=== PATIENT | female | born 1975 | race Caucasian/White ===

== ENCOUNTER 2017-08-25 08:55 | Emergency (ER) | payer OTHER, MEDICAID ==
[~2017-08-25] VITALS: Ht 162.6 cm; Wt 107.0 kg
[~2017-08-25 08:55] MED LIST: ATOR10TA9 PO; METF10002 PO; SERT50TA PO
[2017-08-25] MEDS ORDERED: LIRA0.6P SQ-INSULIN (09:35)
[2017-08-25] MEDS ORDERED: hydrOXyzine 50MG TABLET ONE (09:43)
[2017-08-25 11:31] VITALS: BP 111/73
== END 2017-08-25 12:27 | disposition home or self-care (01) ==
LOC: ED 12:25
DX: L50.1 Idiopathic urticaria (principal); E11.9 Type 2 diabetes mellitus without complications
CPT/HCPCS: 93005; 99283; J7512; Q0177